=== PATIENT | female | born 1955 | race Caucasian/White ===

== ENCOUNTER 2020-12-06 08:29 | Emergency (ER) | payer OTHER ==
--- NOTE | 2020-12-06 08:59 | Emergency Department Report ---
ED Dizziness HPI - General Chief Complaint: Dizziness Stated Complaint: WEAKNESS Time Seen by Provider: 12/06/20 08:40 Source: patient, EMS Mode of arrival: Stretcher Limitations: No Limitations - History of Present Illness Initial Comments: Patient is 65 years old female brought to the emergency room by EMS for evaluation of dizziness that started after a fall last night. Patient stated that she was playing with her dog and tripped and fell and hit her head. Patient stated that she went to sleep immediately and she woke up this morning with significant dizziness and lightheadedness. Patient denied any focal weakness, numbness or tingling sensation. No neck stiffness or pain. No chest pain or shortness of breath. EKG is unremarkable. Chest x-ray is negative for acute finding. CT brain is unremarkable. Labs reviewed unremarkable. Patient remained stable in the ER with stable vital sign. Patient advised to follow-up with her primary care physician in the next 2 to 3 days and to return to the ER if she develop any new symptoms. MD Complaint: dizziness, lightheadedness -: Sudden, This morning Description: lightheadedness - Related Data Allergies Allergy/AdvReac Type Severity Reaction Status Date / Time No Known Allergies Allergy Unverified 12/06/20 09:54 ED Review of Systems ROS: Stated complaint: WEAKNESS Other details as noted in HPI Comment: All other systems reviewed and negative Constitutional: denies: chills, fever Respiratory: denies: cough, shortness of breath, SOB with exertion Cardiovascular: denies: chest pain, palpitations Gastrointestinal: denies: abdominal pain, nausea Musculoskeletal: denies: back pain Neurological: vertigo. denies: headache, weakness, numbness ED Past Medical Hx - Past Medical History Previous Medical History?: Yes Hx Hypertension: Yes Hx Diabetes: Yes ED Physical Exam - General Limitations: No Limitations General appearance: alert, in no apparent distress - Head Head exam: Present: atraumatic, normocephalic, normal inspection - Eye Eye exam: Present: normal appearance, PERRL - ENT ENT exam: Present: normal exam, normal orophraynx, mucous membranes moist - Neck Neck exam: Present: normal inspection, full ROM. Absent: tenderness, meningismus - Respiratory Respiratory exam: Present: normal lung sounds bilaterally - Cardiovascular Cardiovascular Exam: Present: regular rate, normal rhythm, normal heart sounds - GI/Abdominal GI/Abdominal exam: Present: soft, normal bowel sounds. Absent: distended, tenderness, guarding, rebound, rigid, organomegaly, mass, bruit, pulsatile mass, hernia - Extremities Exam Extremities exam: Present: normal inspection, full ROM, normal capillary refill. Absent: tenderness - Back Exam Back exam: Present: normal inspection, full ROM. Absent: CVA tenderness (R), CVA tenderness (L) - Neurological Exam Neurological exam: Present: alert, oriented X3, CN II-XII intact - Skin Skin exam: Present: warm, intact, normal color ED Course Vital Signs 12/06/20 12/06/20 12/06/20 08:32 08:50 08:52 Temperature 98 F 98.2 F Pulse Rate 78 77 Respiratory 16 16 Rate Blood Pressure 172/96 159/76 [Right] O2 Sat by Pulse 98 100 98 Oximetry 12/06/20 11:05 Temperature Pulse Rate 78 Respiratory 20 Rate Blood Pressure 166/73 [Right] O2 Sat by Pulse 98 Oximetry ED Medical Decision Making - Lab Data Result diagrams: 12/06/20 09:06 12/06/20 09:06 - EKG Data -: EKG Interpreted by Sd EKG shows normal: sinus rhythm Rate: normal - EKG Data Interpretation: no acute changes - Radiology Data Radiology results: report reviewed Critical care attestation.: If time is entered above; I have spent that time in minutes in the direct care of this critically ill patient, excluding procedure time. ED Disposition Clinical Impression: Minor head injury, Dizziness, Concussion Disposition: 01 HOME / SELF CARE / HOMELESS Is pt being admited?: No Condition: Stable Instructions: Head Injury, Adult, [id number], Post-Concussion Syndrome, [id number], Dizziness Referrals: PRIMARY CARE, [Primary Care Provider] - 3-5 Days
--- NOTE | 2020-12-06 09:19 | XRay Report ---
CHEST 1 VIEW INDICATION / CLINICAL INFORMATION: Lightheadedness/Dizziness. COMPARISON: None available. FINDINGS: SUPPORT DEVICES: None. HEART / MEDIASTINUM: No significant abnormality. LUNGS / PLEURA: No significant pulmonary or pleural abnormality. No pneumothorax. ADDITIONAL FINDINGS: Suspected posterior magna deformity of the left glenoid. IMPRESSION: 1. No acute findings. Signer Name: Trino Macedo MD Signed: 12/06/2020 9:14 AM Workstation Name: [id number]
--- NOTE | 2020-12-06 09:24 | Cat Scan Report ---
CT head/brain wo con INDICATION: Lightheadedness/Dizziness. TECHNIQUE: Routine CT head without contrast. All CT scans at this location are performed using CT dos e reduction for ALARA by means of automated exposure control. COMPARISON: None. FINDINGS: BRAIN / INTRACRANIAL CONTENTS: No acute hemorrhage, mass effect, midline shift, or hydrocephalus. No appreciable acute large territorial or lacunar infarct. No chronic infarct or focal atrophy. Normal b rain volume and ventricular/sulcal size for age. ORBITS: No significant abnormality of visualized orbits. SINUSES / MASTOIDS: No significant abnormality of visualized sinuses and mastoid air cells. ADDITIONAL FINDINGS: None. IMPRESSION: 1. No acute findings or findings to explain the patient's symptoms. Signer Name: Cyrus Abbott MD Signed: 12/06/2020 9:20 AM Workstation Name: [id number]
[2020-12-06 09:44] LABS: Basophils # (Auto) 0.1 K/mm3 (0.0-0.1); Basophils % (Auto) 0.6 % (0.0-1.8); Eosinophils # (Auto) 0.5 K/mm3 (0.0-0.4); Eosinophils % (Auto) 5.8 % (0.0-4.3); Hemoglobin 11.5 gm/dl (10.1-14.3); Lymphocytes # (Auto) 1.3 K/mm3 (1.2-5.4); Lymphocytes % (Auto) 15.5 % (13.4-35.0); Mean Corpuscular HGB Conc 33 % (30-34); Mean Corpuscular Volume 91 fl (79-97); Monocytes # (Auto) 0.4 K/mm3 (0.0-0.8); Monocytes % (Auto) 5.1 % (0.0-7.3); Platelet Count 298 K/mm3 (140-440); Red Blood Count 3.84 M/mm3 (3.65-5.03); Red Cell Distribution Width 14.4 % (13.2-15.2)
[2020-12-06 09:58] LABS: BUN/Creatinine Ratio 24; Blood Urea Nitrogen 22 mg/dL (7-17); Calcium 9.4 mg/dL (8.4-10.2); Hemolysis Index 4
[2020-12-06 10:29] LABS: Bilirubin,Urine NEG (Negative); Blood,Urine NEG (Negative); Color,Urine Straw (Yellow); Mucus,Urine FEW /HPF; Urobilinogen,Urine < 2.0 mg/dL (<2.0)
[2020-12-06 17:13] VITALS: BP 142/68
--- NOTE | 2020-12-07 17:35 | Electrocardiograph Report ---
[facility] Test Date: 2020-12-06 Test Time: 08:42:35 Pat Name: CAROL MONTES Department: Room: Gender: F Tool Design Engineer: DAYNA : 1955 Requested By: EMERY SEPULVEDA Order Number: [id number] Reading MD: Humble Chavez Measurements Intervals [place] Rate: 72 P: 36 NH: 124 QRS: 24 QRSD: 84 T: 112 QT: 369 QTc: 404 Interpretive Statements Sinus rhythm Consider left ventricle hypertrophy Nonspecific ST abnormality No previous ECG available for comparison Electronically Signed On 12-07-2020 17:34:31 EDT by Humble Chavez
== END 2020-12-06 17:12 | disposition home or self-care (01) ==
LOC: ED 08:29
DX: S09.90XA Unspecified injury of head, initial encounter (principal); R42 Dizziness and giddiness; I10 Essential (primary) hypertension; E11.8 Type 2 diabetes mellitus with unspecified complications; W18.39XA Other fall on same level, initial encounter; Y93.89 Activity, other specified; Y92.89 Other specified places as the place of occurrence of the external cause; Y99.8 Other external cause status
CPT/HCPCS: 36415; 70450; 71045; 80048; 81001; 82140; 84484; 85025; 93005; 99285